=== PATIENT | male | born 1960 | race Caucasian/White ===

== ENCOUNTER 2017-03-02 12:25 | Observation (INO) | payer BC ==
[2017-03-02] MEDS ORDERED: BABY ASPIRIN 81 MG CHEW PO ONE (12:34)
[2017-03-02] MEDS ORDERED: NITRO-BID 2% UD PACKETS TOP ONE (12:34)
--- NOTE | 2017-03-02 12:42 | ERPHSYRPT ---
- History of Present Illness Time Seen by Provider: 03/02/17 12:27 Historian: patient Patient Subjective Stated Complaint: PT WALKED IN , HE STATES HE WAS AT WORK AND STARTED HAVING PRESSURE TO CHEST AND FELT LIKE IT WAS POUNDING,IT TOOK A NITRO AND STATES IT IS BETTER, CO NAUSEA AND SOB AT TIME BUT NON NOW Triage Nursing Assessment: PT ALERT, RESP EASY, CHEST CLEAR, ABD SOFT, PULSES STRONG ,SKIN W/D Physician History: CC: chest pain Hx: 56 y/o patient from [place] here working at [employer]. He has hx of prior cardiac stent one year ago. He was working and had palpitations, chest tightness. Not short of breath. Mild nausea, gone now. Took NTG with some improvement. Former smoker quit 8 years ago. He has not taken his normal AM medications. Timing/Duration: today Location: substernal Chest Pain Radiation: no radiation Severity of Pain-Max: moderate Severity of Pain-Current: mild Nitro Today/Relief: 0.4 mg x 1, provided at home Aspirin Treatment Today: 81 mg x 4, provided by ED Allergies/Adverse Reactions: acetaminophen [From Vicodin] Adverse Reaction (Verified 03/02/17 12:37) hydrocodone [From Vicodin] Adverse Reaction (Verified 03/02/17 12:37) Hx Influenza Vaccination/Date Given: Yes Hx Pneumococcal Vaccination/Date Given: Yes Immunizations Up to Date: Yes - Review of Systems Constitutional: No Fever, No Chills Eyes: No Symptoms Ears, Nose, & Throat: No Symptoms Respiratory: No Cough, No Dyspnea Cardiac: Chest Pain Abdominal/Gastrointestinal: Nausea, No Abdominal Pain, No Vomiting Skin: No Rash Neurological: No Headache All Other Systems: Reviewed and Negative - Past Medical History Pertinent Past Medical History: Yes Cardiac History: Congenital Heart Disease, High Cholesterol, Hypertension Respiratory History: Sleep Apnea Other Medical History: ITP - Past Surgical History Past Surgical History: Yes Cardiac: Cardiac Catheterization Musculoskeletal: Orthopedic Surgery Other Surgical History: KNEE REPLACEMENT - Social History Smoking Status: Former smoker Exposure to second hand smoke: No Drug Use: none Patient Lives Alone: No - Nursing Vital Signs Temperature: 97.6 F Temperature Source: Oral Pulse Rate: 74 Respiratory Rate: 16 Pain Intensity: 3 - Physical Exam General Appearance: alert Eye Exam: PERRL/EOMI Ears, Nose, Throat Exam: normal ENT inspection, moist mucous membranes Neck Exam: normal inspection, non-tender, supple Respiratory Exam: normal breath sounds Cardiovascular Exam: regular rate/rhythm Gastrointestinal/Abdomen Exam: soft, No tenderness, No distention Back Exam: normal inspection Extremity Exam: normal inspection Neurologic Exam: alert, oriented x 3, cooperative, sensation nml, No motor deficits Skin Exam: warm, dry, No rash SpO2 Interpretation: normal SpO2: 97 Oxygen Delivery: Room Air - Course Nursing assessment & vital signs reviewed: Yes EKG Interpreted by Me: RATE (72), Sinus Rhythm, NORMAL AXIS, NORMAL INTERVALS ( QTc 418), Non-specific ST Changes - Radiology Exams cxr X-ray Interpretation: Reviewed by me (ADAMA) Ordered Tests: Active Orders 24 hr Category Date Time Status Prosthetic Makeup Designer STAT Care 03/02/17 12:34 Active EKG-ER Only STAT Care 03/02/17 12:34 Active IV Insertion STAT Care 03/02/17 12:34 Active Pulse Oximetry (ED) STAT Care 03/02/17 12:34 Active CHEST 1 VIEW (PORTABLE) Stat Exams 03/02/17 12:34 Taken CBC W DIFF Stat Lab 03/02/17 12:49 Completed CMP Stat Lab 03/02/17 12:49 Completed TROPONIN Q3H Lab 03/02/17 12:49 Completed TROPONIN Q3H Lab 03/02/17 15:45 Ordered TROPONIN Q3H Lab 03/02/17 18:45 Ordered TROPONIN Q3H Lab 03/02/17 21:45 Ordered TROPONIN Q3H Lab 03/03/17 00:45 Ordered Medication Summary Discontinued Medications Generic Name Dose Route Start Last Admin Trade Name Freq PRN Reason Stop Dose Admin Aspirin 324 mg 03/02/17 12:34 03/02/17 12:55 Baby Aspirin 81 Mg Chew PO 03/02/17 12:35 324 mg STAT ONE Administration Aspirin Confirm 03/02/17 12:51 Baby Aspirin 81 Mg Chew Administered 03/02/17 12:52 Dose 324 mg .ROUTE .STK-MED ONE Nitroglycerin 1 gm 03/02/17 12:34 03/02/17 12:55 Nitro-Bid 2% Ud Packets TOP 03/02/17 12:35 1 gm STAT ONE Administration Nitroglycerin Confirm 03/02/17 12:51 Nitro-Bid 2% Ud Packets Administered 03/02/17 12:52 Dose 1 gm .ROUTE .STK-MED ONE Lab/Rad Data: Laboratory Result Diagrams 03/02/17 12:49 03/02/17 12:49 Laboratory Results 03/02/17 03/02/17 03/02/17 Range/Units 12:49 12:49 12:49 WBC 5.7 (4.0-10.5) K/mm3 RBC 4.69 (4.1-5.6) M/mm3 Hgb 13.5 (12.5-18.0) gm/dl Hct 40.8 L (42-50) % MCV 87.0 (78-100) fl MCH 28.8 (26-32) pg MCHC 33.1 (32-36) g/dl RDW 14.0 (11.5-14.0) % Plt Count 120 L (150-450) K/mm3 MPV 10.4 H (6-9.5) fl Gran % 55.9 (36.0-66.0) % Lymphocytes % 26.5 (24.0-44.0) % Monocytes % 11.6 (0.0-12.0) % Eosinophils % 4.8 (0.00-5.0) % Basophils % 1.2 (0.0-0.4) % Basophils # 0.07 (0-0.4) Sodium 143 (136-145) mEq/L Potassium 3.8 (3.5-5.1) mEq/L Chloride 106 (98-107) mEq/L Carbon Dioxide 28.7 (21-32) mEq/L Anion Gap 12.2 (5-15) MEQ/L BUN 16 (9-20) mg/dL Creatinine 1.24 (0.55-1.30) mg/dl Estimated GFR > 60 ML/MIN Glucose 104 (70-110) MG/DL Calcium 9.1 (8.5-10.1) mg/dL Total Bilirubin 0.5 (0.2-1.0) mg/dL AST 15 (15-37) U/L ALT 16 (12-78) U/L Alkaline Phosphatase 80 (46-116) U/L Troponin I < 0.017 (0.000-0.056) ng/ml Serum Total Protein 6.7 (6.4-8.2) gm/dL Albumin 3.5 (3.4-5.0) g/dL - Progress Progress Note: 03/02/17 14:09 Pain better with NTG paste. No shortness of breath to suggest thromboembolic disease. Called Dr Kelley (oc) for chest pain observation. Will see patient in: hospital (observation) Counseled pt/family regarding: lab results, diagnosis, need for follow-up, rad results - Departure Time of Disposition: 14:10 Departure Disposition: Observation Clinical Impression: Chest pain, rule out acute myocardial infarction Condition: Fair Critical Care Time: No
[2017-03-02] MEDS ORDERED: BABY ASPIRIN 81 MG CHEW ONE (12:51)
[2017-03-02] MEDS ORDERED: NITRO-BID 2% UD PACKETS ONE (12:51)
[2017-03-02 12:54] LABS: BASOPHIL % 1.2 % (0.0-0.4); Eosinophil % 4.8 % (0.00-5.0); Granulocytes % 55.9 % (36.0-66.0); Lymphocytes % 26.5 % (24.0-44.0); Mean Corpuscular Hemoglobin 28.8 pg (26-32); Mean Platelet Volume 10.4 fl (6-9.5); Monocytes % 11.6 % (0.0-12.0); Platelet Count 120 K/mm3 (150-450); Red Blood Count 4.69 M/mm3 (4.1-5.6); White Blood Count 5.7 K/mm3 (4.0-10.5)
[2017-03-02 13:16] LABS: ALBUMIN 3.5 g/dL (3.4-5.0); ALKALINE PHOSPHATASE 80 U/L (46-116); ANION GAP 12.2 MEQ/L (5-15); BILIRUBIN,TOTAL 0.5 mg/dL (0.2-1.0); BLOOD UREA NITROGEN 16 mg/dL (9-20); CHLORIDE 106 mEq/L (98-107); Carbon Dioxide 28.7 mEq/L (21-32); Glucose 104 MG/DL (70-110); Potassium 3.8 mEq/L (3.5-5.1); SGOT/AST 15 U/L (15-37); SGPT/ALT 16 U/L (12-78); SODIUM 143 mEq/L (136-145); Total Protein 6.7 gm/dL (6.4-8.2)
[2017-03-02] MEDS ORDERED: Senokot-S Tablet PO PRN (15:07)
[2017-03-02] MEDS ORDERED: Zofran 4 MG/2 ML VIAL IV PRN (15:07)
[2017-03-02] MEDS ORDERED: MAALOX ES 30 ML UNIT DOSE PO PRN (15:07)
[2017-03-02] MEDS ORDERED: MILK OF MAGNESIA 30 ML PO PRN (15:07)
[2017-03-02] MEDS: TYLENOL 325 MG PO PRN ×2 (16:10→22:14)
[2017-03-02] MEDS: LASIX 80 MG PO SCH (16:38)
[2017-03-02] MEDS: Ranexa 500 MG PO SCH (16:38)
[2017-03-02] MEDS: Toprol Xl 100 MG PO SCH (16:38)
[2017-03-02] MEDS: Protonix 40MG Tablet PO SCH (16:38)
[2017-03-02] MEDS: ZOCOR 20MG PO SCH (16:38)
[2017-03-02] MEDS: PLAVIX 75 MG Tablet PO SCH (16:38)
[2017-03-02] MEDS: Aldactone 25 MG PO SCH (16:38)
[2017-03-02] MEDS: MAG-OX 400 PO SCH (16:39)
[2017-03-02] MEDS: Senokot-S Tablet PO SCH (16:39)
[2017-03-02] MEDS: Klor Con 10 MEQ PO SCH (16:39)
--- NOTE | 2017-03-02 17:19 | PCM.HP ---
History of Present Illness - Chief Complaint Chief Complaint: chest pain r/o HI History of Present Illness: is a 56 year old male from [place] who developed substernal chest pain that was tight in nature and his heart was pounding and racing. It started at work but he was not exerting himself. He felt some mild nausea, no dyspnea or diaphoresis. He is a nonsmoker, obese hypertensive that had a heart cath and stent placed in his LAD 1 year ago in [place]. He took 1 nitro and his pain resolved. - Review of Systems Constitutional: No Fever, No Chills Respiratory: No Cough, No Short Of Breath Cardiac: Chest Pain, Palpitations Abdominal/Gastrointestinal: No Abdominal Pain, No Nausea, No Vomiting, No Diarrhea Skin: No Rash Neurological: No Dizziness, No Focal Weakness, No Sensory Changes All Other Systems: Reviewed and Negative Medications & Allergies Home Medications: Home Medication List Aspirin [Aspir-Low] 81 mg PO DAILY 03/02/17 [History Confirmed 03/02/17] Atorvastatin Calcium 40 mg PO DAILY 03/02/17 [History Confirmed 03/02/17] Clopidogrel Bisulfate [Clopidogrel] 75 mg PO DAILY 03/02/17 [History Confirmed 03/02/17] Furosemide 40 mg [Lasix 40 MG] 80 mg PO DAILY 03/02/17 [History Confirmed 03/02/17] Magnesium Oxide 400 mg [Mag-Ox 400] 400 mg PO DAILY 03/02/17 [History Confirmed 03/02/17] Metoprolol Succinate 100 mg [Toprol Xl 100 MG] 100 mg PO DAILY 03/02/17 [ History Confirmed 03/02/17] Nitroglycerin 0.4 mg Tablet [Nitrostat 0.4 MG Tablet] 0.4 mg SL UD PRN [History Confirmed 03/02/17] Omeprazole 20 MG [Prilosec 20 mg] 20 mg PO DAILY 03/02/17 [History Confirmed ] Potassium Chloride 20 Meq [Klor-Con 20 MEQ] 40 meq PO DAILY 03/02/17 [History Confirmed 03/02/17] Ranolazine 500 MG [Ranexa 500 MG] 500 mg PO DAILY 03/02/17 [History Confirmed 03/02/17] Sennosides/Docusate Sodium [Senna Plus Tablet] 1 each PO DAILY 03/02/17 [ History Confirmed 03/02/17] Spironolactone 25 mg [Aldactone 25 MG] 25 mg PO DAILY 03/02/17 [History Confirmed 03/02/17] Allergies/Adverse Reactions: Allergies Allergy/AdvReac Type Severity Reaction Status Date / Time acetaminophen [From Vicodin] AdvReac Verified 03/02/17 12:37 hydrocodone [From Vicodin] AdvReac Verified 03/02/17 12:37 - Past Medical History Past Medical History: Yes Neurological History: No Pertinent History, Migraines ENT History: No Pertinent History Cardiac History: Congenital Heart Disease, High Cholesterol, Hypertension Respiratory History: Sleep Apnea Endocrine Medical History: No Pertinent History Musculoskelatal History: Arthritis GI Medical History: GERD, Polyps History: No Pertinent History Pyscho-Social History: No Pertinent History Male Reproductive Disorders: No Pertinent History Comment: low platelet count for unknow reason. cardiac stent in the maker - Past Surgical History Past Surgical History: Yes Neuro Surgical History: No Pertinent History Cardiac History: Cardiac Catheterization Respiratory Surgery: No Pertinent History GI Surgical History: No Pertinent History Genitourinary Surgical Hx: No Pertinent History Musculskeletal Surgical Hx: Orthopedic Surgery Male Surgical History: Vasectomy Other Surgical History: KNEE REPLACEMENT - Social History Smoking Status: Former smoker Exposure to second hand smoke: No Alcohol: Occasionally Drug Use: none - Physical Exam Vital Signs: Vital Signs - 24 hr Temp Pulse Pulse Resp BP Pulse Ox 03/02/17 16:00 95 03/02/17 15:47 97.6 F 68 18 137/78 95 03/02/17 14:35 97.6 F 68 18 137/78 95 03/02/17 14:10 97.6 F 74 16 97 03/02/17 14:06 77 16 123/71 96 03/02/17 14:03 70 20 130/71 95 03/02/17 13:18 69 22 129/75 95 03/02/17 12:40 74 97 03/02/17 12:26 97.6 F 74 16 132/77 97 General Appearance: no apparent distress, alert Neurologic Exam: alert, oriented x 3, cooperative, normal mood/affect, nml cerebellar function, nml station & gait, sensation nml, No motor deficits Eye Exam: PERRL/EOMI, eyes nml inspection Respiratory Exam: normal breath sounds, lungs clear, No respiratory distress Cardiovascular Exam: regular rate/rhythm, normal heart sounds, normal peripheral pulses Gastrointestinal/Abdomen Exam: soft, normal bowel sounds, No tenderness, No mass Extremity Exam: normal inspection, normal range of motion, pelvis stable Skin Exam: normal color, warm, dry, No rash Results - Labs Lab/Micro Results: Lab Results-Last 24 Hours 03/02/17 Range/Units 15:56 Troponin I < 0.017 (0.000-0.056) ng/ml - Radiology Impressions Radiology Exams & Impressions: Radiology Procedures Category Date Time Status ECHO W/2D AND DOPPLER [US] Routine Exams 03/03/17 08:00 Ordered - Other Procedures and Tests Respiratory Therapy 03/02/17 20:32 EKG ONCE 03/03/17 05:00 EKG ONCE 03/04/17 05:00 EKG ONCE 03/05/17 05:00 EKG ONCE Assessment/Plan (1) Chest pain, rule out acute myocardial infarction Current Visit: Yes Status: Acute Assessment & Plan: R/O HI Code(s): R07.9 - CHEST PAIN, UNSPECIFIED (2) Hypertension Current Visit: Yes Status: Acute Assessment & Plan: stable at this time. Code(s): I10 - ESSENTIAL (PRIMARY) HYPERTENSION
[2017-03-02] MEDS: NITRO-BID 2% UD PACKETS TOP SCH (21:30)
[2017-03-03 05:12] VITALS: O2SAT 95
[2017-03-03] MEDS: NITRO-BID 2% UD PACKETS TOP SCH (05:25)
[2017-03-03] MEDS: TYLENOL 325 MG PO PRN (05:54)
[2017-03-03 07:25] VITALS: BP 128/65; PULSE 70
--- NOTE | 2017-03-03 07:57 | CONS ---
CONSULT DATE: 03/02/2017 BRIEF HISTORY: This is a 56 year-old male who was seen because of chest pains. 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 He took a nitroglycerin which afforded some relief. At the time of this examination here he has been asymptomatic. Initial EKG done in the emergency room shows normal sinus rhythm with no significant ST-T displacement. The patient is known to have coronary artery disease and had a coronary stent deployed "in the LAD" a year ago in [facility]. He has done reasonably well. He states that they had a Holter done earlier part of this year by his family physician and he was told that he had some form of tachycardia. He was scheduled to see a consumer educator. He has never had myocardial infarction or heart failure. He has done reasonably well post percutaneous intervention. CARDIAC RISK FACTORS: Negative for diabetes. Positive for hypertension. He quit smoking about eight years ago. He has hyperlipidemia on statin therapy. FAMILY HISTORY: Positive for coronary artery disease. Father had a myocardial infarction. REVIEW OF SYSTEMS: KITCHEN OPERATOR: There is no history of stroke. No headaches. No seizures. No visual disturbances. No hearing difficulties. RESPIRATORY: He has history of sleep apnea on CPAP. No hemoptysis. No chronic cough. GI: No history of heartburn, nausea or vomiting. He has a history of colon polyps. : Negative for dysuria or hematuria. No flank pains. PERIPHERAL VASCULAR: No history of DVT or claudication. He has intermittent leg edema. MUSCULOSKELETAL: He has degenerative joint disorder. SKIN: History of skin cancers. No active lesions. HEMATOLOGY: He has history of thrombocytopenia and at one point was on steroid therapy. CURRENT MEDICATIONS: Aspirin 81 mg a day, Lipitor 40 mg a day, Plavix 75 mg a day, Lasix 80 mg a day, magnesium 400 mg a day, metoprolol 100 mg a day, nitroglycerin sublingual PRN, omeprazole 20 mg a day, potassium 40 mEq daily, ranolazine 500 mg daily, Senna Plus 1 tablet a day, Spironolactone 25 mg a day. PAST SURGICAL HISTORY: Left knee replacement. SOCIAL HISTORY: He is . 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 He has no significant alcohol intake. PHYSICAL EXAMINATION: His blood pressure is 130/71, heart rate 90, respirations about 14. GENERAL: The patient is a middle aged male who is obese, alert, oriented who is not in any form of distress, currently chest pain free. HEENT: Unremarkable. NECK: No significant JVD or carotid bruit. CHEST: The breath sounds are clear. There is no rhonchi or wheezing. CARDIAC: Heart tones are somewhat distant. The rhythm is regular. There is no audible gallop or murmur. ABDOMEN: Soft with normal bowel sounds. No bruits. EXTREMITIES: There is bilateral leg edema with palpable distal pulses. LAB DATA AND DIAGNOSTIC TESTS: The EKG shows normal sinus rhythm and nonspecific ST-T changes. The troponin I is 0.717. IMPRESSION: In essence the patient presented with: 1) Chest pains; rule out myocardial infarction. Serial troponin I will be obtained. After myocardial infarction is ruled out would suggest either a stress test or pharmacological stress test. This can be done here or in his home town in [place] if he decides to go home. The patient has been stabilized. 2) Coronary artery disease status post PCI. 3) Hyperlipidemia. Continue statin therapy. 4) Hypertension. 5) Chronic renal insufficiency. I will follow up with you.
--- NOTE | 2017-03-03 08:55 | XRAY ---
Exam: AP upright portable chest film from 1245 hrs. on 03/02/2017. Comparison: None. Indication: Chest pain. Findings: The initial radiograph was repeated because of motion artifact. The transverse heart size appears within normal limits. There is slight tortuosity of the descending thoracic aorta. I believe there are small epicardial fat pads at both cardiophrenic angles, larger on the left than right. The right hilum appears mildly full as compared to the left hilum. It is possible that this is due to tortuosity of the central right hilar vessels, but a small mass is not excluded with certainty. If previous films cannot be located for [id number] comparison to prove stability, a CT of the chest with IV contrast would be recommended. Slight nonspecific accentuation of the lung markings is seen at both lung bases. This could reflect minimal linear subsegmental atelectasis or fibrotic scarring. The possibility of a minimal infiltrate at the right lung base is difficult to exclude. Otherwise, the lung santiago appear clear. No central vascular congestion or pleural effusions are seen. There is no pneumothorax. No gross bone abnormality is seen. Impression: 1. Mild nodular fullness is seen at the lateral margin of the right hilum of unclear stability. Comparison with any outside old films would be helpful to establish whether or not this is chronic and perhaps due to simple vessel tortuosity. A small right perihilar lung mass is not excluded with certainty based on this radiograph. If there are no prior chest films, I would recommend a CT of the chest with IV contrast for further evaluation. 2. There is mild accentuation of the interstitial markings at both lung bases which is nonspecific. This may represent minimal linear plate atelectasis or fibrotic scarring. A minimal infiltrate at the right lung base is difficult to exclude. 3. No other acute cardiopulmonary disease is seen.
[2017-03-03] MEDS: MAG-OX 400 PO SCH (09:31)
[2017-03-03] MEDS: Ranexa 500 MG PO SCH (09:31)
[2017-03-03] MEDS: Klor Con 10 MEQ PO SCH (09:32)
[2017-03-03] MEDS: ZOCOR 20MG PO SCH (09:32)
[2017-03-03] MEDS: Senokot-S Tablet PO SCH (09:33)
[2017-03-03] MEDS: Toprol Xl 100 MG PO SCH (09:33)
[2017-03-03] MEDS: PLAVIX 75 MG Tablet PO SCH (09:33)
[2017-03-03] MEDS: LASIX 80 MG PO SCH (09:34)
[2017-03-03] MEDS: Aldactone 25 MG PO SCH (09:34)
--- NOTE | 2017-03-03 09:39 | PCM.DS ---
Discharge Summary Date of Admission: 03/02/17 14:30 Admitting Physician: RAJIV COPELAND Consults: Consults on Case 03/02/17 15:22 Consult Cardiology ROUTINE Consult Cardiology ROUTINE Primary Care Provider: NO FAMILY DOCTOR Allergies Allergies acetaminophen [From Vicodin] Adverse Reaction (Verified 03/02/17 12:37) hydrocodone [From Vicodin] Adverse Reaction (Verified 03/02/17 12:37) Hospital Summary - Hospital Course Hospital Course: patient has had no chest pain since admission, tolerating po intake. feels well today. hx of CAD with stent placed in LAD 1 year ago in [place]. - Vitals & Intake/Output Vital Signs: Vital Signs Temperature 97.5 F 03/03/17 04:00 Pulse Rate 70 03/03/17 07:25 Respiratory Rate 18 03/03/17 07:25 Blood Pressure 128/65 03/03/17 07:25 O2 Sat by Pulse Oximetry 95 03/03/17 07:25 Intake & Output: Intake & Output 02/28/17 03/01/17 03/02/17 03/03/17 11:59 11:59 11:59 11:59 Intake Total 1320 Balance 1320 Weight 187.787 kg - Lab Result Diagrams: 03/02/17 12:49 03/02/17 12:49 Lab Results-Last 24 Hrs: Lab Results-Last 24 Hours 03/02/17 03/02/17 03/02/17 Range/Units 15:56 19:54 22:56 Troponin I < 0.017 < 0.017 < 0.017 (0.000-0.056) ng/ml Triglycerides (30-200) mg/dL Cholesterol (100-200) mg/dL LDL Cholesterol (5-99) mg/dL HDL Cholesterol (35-60) mg/dL Heart Disease Risk Ratio 03/03/17 03/03/17 Range/Units 02:50 05:18 Troponin I < 0.017 (0.000-0.056) ng/ml Triglycerides 111 (30-200) mg/dL Cholesterol 117 (100-200) mg/dL LDL Cholesterol 74 (5-99) mg/dL HDL Cholesterol 33 L (35-60) mg/dL Heart Disease Risk Ratio 3.5 - Radiology Exams Ordered Rad Exams-Entire Visit: Radiology Procedures Category Date Time Status ECHO W/2D AND DOPPLER [US] Routine Exams 03/03/17 08:00 Ordered - Procedures and Test Procedures and Tests throughout Hospitalization: Therapy Orders & Screens 03/02/17 20:32 EKG ONCE Comment: Diagnosis: chest pain r/o NH 03/02/17 22:38 BiPap/CPAP Assessment ROUTINE Comment: cpap as per home Diagnosis: chest pain r/o NH 03/03/17 05:00 EKG ONCE Comment: Diagnosis: chest pain r/o NH 03/04/17 05:00 EKG ONCE Comment: Diagnosis: chest pain r/o NH 03/05/17 05:00 EKG ONCE Comment: Diagnosis: chest pain r/o NH Discharge Exam General Appearance: no apparent distress, alert, obese Respiratory Exam: normal breath sounds, lungs clear, No respiratory distress Cardiovascular Exam: regular rate/rhythm, normal heart sounds Gastrointestinal/Abdomen Exam: soft, No tenderness, No mass Extremity Exam: normal inspection, normal range of motion Final Diagnosis/Problem List - Final Discharge Diagnosis/Problem (1) Chest pain, rule out acute myocardial infarction Current Visit: Yes Status: Acute Assessment & Plan: NH ruled out, will f/u with cardiology after discharge. 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[employer]) or f/u with Dr Garsia after discharge (2) Hypertension Current Visit: Yes Status: Acute - Discharge Disposition: Home, Self-Care Condition: Good Prescriptions: Continue Sennosides/Docusate Sodium [Senna Plus Tablet] 1 each PO DAILY Omeprazole 20 MG [Prilosec 20 mg] 20 mg PO DAILY Clopidogrel Bisulfate [Clopidogrel] 75 mg PO DAILY Metoprolol Succinate 100 mg [Toprol Xl 100 MG] 100 mg PO DAILY Spironolactone 25 mg [Aldactone 25 MG] 25 mg PO DAILY Furosemide 40 mg [Lasix 40 MG] 80 mg PO DAILY Magnesium Oxide 400 mg [Mag-Ox 400] 400 mg PO DAILY Aspirin [Aspir-Low] 81 mg PO DAILY Ranolazine 500 MG [Ranexa 500 MG] 500 mg PO DAILY Atorvastatin Calcium 40 mg PO DAILY Potassium Chloride 20 Meq [Klor-Con 20 MEQ] 40 meq PO DAILY Nitroglycerin 0.4 mg Tablet [Nitrostat 0.4 MG Tablet] 0.4 mg SL UD PRN PRN Reason: Chest Pain Follow up with: MARYSE GARSIA [ACTIVE STAFF] - 1 Week
[2017-03-03] MEDS: Protonix 40MG Tablet PO SCH (09:41)
[2017-03-03] MEDS ORDERED: Ecotrin 325 MG PO SCH (10:00)
[2017-03-03] MEDS ORDERED: SENNOSIDES PO SCH (10:00)
[2017-03-03] MEDS ORDERED: LIPITOR 40MG PO SCH (10:00)
[2017-03-03] MEDS ORDERED: ECOTRIN 81 MG PO SCH (10:00)
[2017-03-03] MEDS ORDERED: NON-FORMULARY ITEM (Omeprazole 20 Mg [Prilosec 20 Mg] 20 MG) PO SCH (10:00)
[2017-03-03] MEDS ORDERED: NON-FORMULARY ITEM (Potassium Chloride 20 Meq [Klor-Con 20 Meq] 40 MEQ) PO SCH (10:00)
[2017-03-03] MEDS ORDERED: DOCUSATE SODIUM PO SCH (10:00)
== END 2017-03-03 11:15 | disposition home or self-care (01) ==
LOC: ED 12:25 → MED SURG 14:30
PROVIDERS: ADMIT Family Medicine; ATTEND Family Medicine
DX: R07.9 Chest pain, unspecified (principal); I10 Essential (primary) hypertension; I25.10 Atherosclerotic heart disease of native coronary artery without angina pectoris; N28.9 Disorder of kidney and ureter, unspecified; Z98.61 Coronary angioplasty status; E78.5 Hyperlipidemia, unspecified; F17.200 Nicotine dependence, unspecified, uncomplicated; Z79.899 Other long term (current) drug therapy
CPT/HCPCS: 36000; 36415; 71010; 80053; 80061; 83721; 84484; 85025; 93005; 93041; 93268; 94660; 99285; G0378; A9270-GY